=== PATIENT | male | born 1960 | race Caucasian/White ===

== ENCOUNTER 2017-11-04 18:10 | Emergency (ER) | payer SELFPAY ==
[~2017-11-04] VITALS: Ht 175.3 cm; Wt 78.5 kg
[2017-11-04 18:18] VITALS: BP_SYST 163
[2017-11-04] MEDS ORDERED: LOSA25TA3 PO (18:25)
[2017-11-04] MEDS ORDERED: cloNIDine HCL 0.1 MG TABLET PO ONE (18:45)
[2017-11-04 19:05] VITALS: BP_SYST 154
== END 2017-11-04 18:50 ==
LOC: SED 18:10
DX: I10 Essential (primary) hypertension (principal)
CPT/HCPCS: 99283